=== PATIENT | male | born 1965 | race Caucasian/White ===

== ENCOUNTER → 2018-03-01 | Outpatient (CLI) | payer OTHER ==
[~2018-03-01] MED LIST: NF-ESOM40C PO; OMEP20CA12 PO; PANT20TA2 PO; SCR1T1 PO; SIMV40TA2 PO
--- NOTE | 2018-03-01 16:51 | Diagnostic Imaging Report ---
INDICATION: Cough and congestion. COMPARISON: None. FINDINGS: Two views of the chest were obtained. The heart size is normal. The pulmonary vessels appear unremarkable. There is no pneumothorax, mediastinal widening, or pleural fluid. The lungs are clear. The osseous structures appear unremarkable. IMPRESSION: No acute abnormality is demonstrated. Dictated by: Dictated on workstation # [id number]
== END ==
LOC: RAD 16:04
PROVIDERS: ATTEND Family Medicine
DX: R05 Cough (principal); R09.89 Other specified symptoms and signs involving the circulatory and respiratory systems; R06.02 Shortness of breath
CPT/HCPCS: 71046

== ENCOUNTER 2019-03-27 20:11 | Emergency (ER) | payer OTHER ==
[~2019-03-27] VITALS: Ht 182.9 cm; Wt 138.3 kg
[2019-03-27 20:13] VITALS: BP 153/87
[2019-03-27 20:37] LABS: BASOPHILS # (AUTO) 0.1 10^3/uL (0.0-0.1); BASOPHILS % (AUTO) 1 % (0-10); EOSINOPHILS # (AUTO) 0.5 10^3/uL (0.0-0.3); EOSINOPHILS % (AUTO) 5 % (0-10); HEMATOCRIT 39 % (40-54); HEMOGLOBIN 13.4 G/DL (13.3-17.7); LYMPHOCYTES % (AUTO) 22 % (12-44); MEAN CORPUSCULAR HEMOGLOBIN 30 PG (25-34); MEAN CORPUSCULAR HGB CONC 35 G/DL (32-36); MEAN CORPUSCULAR VOLUME 87 FL (80-99); MONOCYTES # (AUTO) 0.9 X 10^3 (0.0-1.0); MONOCYTES % (AUTO) 10 % (0-12); NEUTROPHILS # (AUTO) 5.6 X 10^3 (1.8-7.8); NEUTROPHILS % (AUTO) 62 % (42-75); PLATELET COUNT 218 10^3/uL (130-400); RED CELL DISTRIBUTION WIDTH 13.4 % (10.0-14.5)
[2019-03-27 20:45] LABS: INR 0.9 (0.8-1.4); PROTHROMBIN TIME PATIENT 12.9 SEC (12.2-14.7)
[2019-03-27 20:56] LABS: ALANINE AMINOTRANSFERASE 30 U/L (0-55); ALBUMIN 4.2 GM/DL (3.2-4.5); ALKALINE PHOSPHATASE 102 U/L (40-136); BILIRUBIN,TOTAL 0.5 MG/DL (0.1-1.0); BUN/CREATININE RATIO 10; CALCIUM 9.6 MG/DL (8.5-10.1); CARBON DIOXIDE 18 MMOL/L (21-32); CHLORIDE 109 MMOL/L (98-107); CREATININE SERUM 1.38 MG/DL (0.60-1.30); GFR ESTIMATED 54; GLUCOSE 149 MG/DL (70-105); MAGNESIUM 2.3 MG/DL (1.8-2.4); POTASSIUM 4.4 MMOL/L (3.6-5.0); SODIUM 140 MMOL/L (135-145); TOTAL PROTEIN 7.3 GM/DL (6.4-8.2)
--- NOTE | 2019-03-27 21:01 | ED Chest Pain ---
General Chief Complaint: Chest Pain Stated Complaint: CHEST PAIN Source: patient Exam Limitations: no limitations History of Present Illness Date Seen by Provider: Mar 27, 2019 Time Seen by Provider: 20:13 Initial Comments 53-year-old male who presents to the emergency room with complaints of sharp right-sided chest pain and shortness of breath that started 20-30 minutes prior to arrival. Reports that he had been mowing grass this evening on the right lower but was not doing anything in the chest pain started he was at best. He is pain-free on arrival to the emergency room. He denies shortness of breath, nausea, vomiting, lightheadedness. Reports history of hypertension, and hyperlipidemia. He is a patient of Dr. Codys. Timing/Duration: 1/2 hour, resolved prior to arrival Associated Symptoms: shortness of breath Allergies and Home Medications Allergies Coded Allergies: No Known Drug Allergies (Unverified , 05/23/12) Home Medications Pantoprazole Sodium 20 Mg Tablet.dr, 40 MG PO DAILY Prescribed by: CAROLINA VARGHESE on 01/09/15 133 Simvastatin 40 Mg Tablet, 40 MG PO HS, (Reported) Sucralfate 1 Gm Tab, 1 GM PO QID Prescribed by: CAROLINA VARGHESE on 01/09/15 1337 Patient Home Medication List Home Medication List Reviewed: Yes Past Knipabo-Gdmqpz-Ituveg Hx Patient Social History Recent Foreign Travel: No Contact w/Someone Who Travel: No Physical Exam Vital Signs Capillary Refill : Height, Weight, BMI Height: 6'1.00" Weight: 285lbs. oz. 129.270393bs; BMI Method:Estimated Progress/Results/Core Measures Results/Orders Lab Results Laboratory Tests Test 03/27/19 20:27 Range/Units White Blood Count 9.0 4.3-11.0 10^3/uL Red Blood Count 4.43 4.35-5.85 10^6/uL Hemoglobin 13.4 13.3-17.7 G/DL Hematocrit 39 L 40-54 % Mean Corpuscular Volume 87 80-99 FL Mean Corpuscular Hemoglobin 30 25-34 PG Mean Corpuscular Hemoglobin Concent 35 32-36 G/DL Red Cell Distribution Width 13.4 10.0-14.5 % Platelet Count 218 130-400 10^3/uL Mean Platelet Volume 12.0 H 7.4-10.4 FL Neutrophils (%) (Auto) 62 42-75 % Lymphocytes (%) (Auto) 22 12-44 % Monocytes (%) (Auto) 10 0-12 % Eosinophils (%) (Auto) 5 0-10 % Basophils (%) (Auto) 1 0-10 % Neutrophils # (Auto) 5.6 1.8-7.8 X 10^3 Lymphocytes # (Auto) 2.0 1.0-4.0 X 10^3 Monocytes # (Auto) 0.9 0.0-1.0 X 10^3 Eosinophils # (Auto) 0.5 H 0.0-0.3 10^3/uL Basophils # (Auto) 0.1 0.0-0.1 10^3/uL Prothrombin Time 12.9 12.2-14.7 SEC INR Comment 0.9 0.8-1.4 Activated Partial Thromboplast Time 28 24-35 SEC Sodium Level 140 135-145 MMOL/L Potassium Level 4.4 3.6-5.0 MMOL/L Chloride Level 109 H 98-107 MMOL/L Carbon Dioxide Level 18 L 21-32 MMOL/L Anion Gap 13 5-14 MMOL/L Blood Urea Nitrogen 14 7-18 MG/DL Creatinine 1.38 H 0.60-1.30 MG/DL Estimat Glomerular Filtration Rate 54 BUN/Creatinine Ratio 10 Glucose Level 149 H 70-105 MG/DL Calcium Level 9.6 8.5-10.1 MG/DL Corrected Calcium 9.4 8.5-10.1 MG/DL Magnesium Level 2.3 1.8-2.4 MG/DL Total Bilirubin 0.5 0.1-1.0 MG/DL Aspartate Amino Transf (AST/SGOT) 19 5-34 U/L Alanine Aminotransferase (ALT/SGPT) 30 0-55 U/L Alkaline Phosphatase 102 40-136 U/L Myoglobin 110.9 H 10.0-92.0 NG/ML Troponin I < 0.028 <0.028 NG/ML Total Protein 7.3 6.4-8.2 GM/DL Albumin 4.2 3.2-4.5 GM/DL My Orders Orders - ARVIN LINARES Cbc With Automated Diff (03/27/19 20:12) Magnesium (03/27/19 20:12) Chest 1 View, Ap/Pa Only (03/27/19 20:12) Ekg Tracing (03/27/19 20:12) Cardiac Profile 1 (03/27/19 20:12) Comprehensive Metabolic Panel (03/27/19 20:12) Myoglobin Serum (03/27/19 20:12) Protime With Inr (03/27/19 20:12) Partial Thromboplastin Time (03/27/19 20:12) O2 (03/27/19 20:12) Monitor-Rhythm Ecg Trace Only (03/27/19 20:12) Lipid Panel (03/28/19 06:00) Ed Iv/Invasive Line Start (03/27/19 20:12) Diagnostic Imaging Diagonstic Imaging: Xray Plain Films/CT/US/NM/MRI: chest Comments [facility] [place], [place] NAME: PATRICE RIVAS [facility] REC#: [id number] PT STATUS: REG ER : 1965 PHYSICIAN: ARVIN LINARES ADMIT DATE: 03/27/19/ER Draft Date of Exam:03/27/19 CHEST 1 VIEW, AP/PA ONLY INDICATION: Chest pain COMPARISON: 03/01/2018 FINDINGS: Single frontal view of the chest demonstrates normal heart size and pulmonary vascularity. The lungs show low inspiratory volumes, but are otherwise clear. No large pleural effusion or pneumothorax is seen. The visualized osseous structures show no acute abnormalities. IMPRESSION: 1. No acute cardiopulmonary process. Dictated on workstation # [id number] Dict: 03/27/[id number] Trans: 03/27/192119 [facility] [id number] Interpreted by: VALERIE HERNANDEZ MD Electronically signed by: Reviewed: Reviewed by Me Departure Impression Primary Impression: Chest pain Additional Impression: Left against medical advice Disposition: 07 AGAINST MEDICAL ADVICE Condition: Stable/Unchanged Departure-Patient Inst. Decision time for Depature: 21:30 Referrals: CAL EDWARDS DO (PCP/Family) Primary Care Physician Patient Instructions: Chest Pain (DC) Add. Discharge Instructions: Return back to the emergency room should you have worsening chest pain, or any other concerns as needed. Call Dr. Edwards's office to schedule an appointment tomorrow for follow-up to be seen within 1 week. All discharge instructions reviewed with patient and/or family. Voiced understanding. ARVIN LINARES Mar 27, 2019 21:01
--- NOTE | 2019-03-27 21:20 | Diagnostic Imaging Report ---
INDICATION: Chest pain COMPARISON: 03/01/2018 FINDINGS: Single frontal view of the chest demonstrates normal heart size and pulmonary vascularity. The lungs show low inspiratory volumes, but are otherwise clear. No large pleural effusion or pneumothorax is seen. The visualized osseous structures show no acute abnormalities. IMPRESSION: 1. No acute cardiopulmonary process. Dictated by: Dictated on workstation # [id number]
== END 2019-03-27 21:35 | disposition left against medical advice (07) ==
LOC: EDUNIT# 20:11 → ER 20:13
DX: R07.9 Chest pain, unspecified (principal)
CPT/HCPCS: 36415; 71045; 80053; 83735; 83874; 84484; 85025; 85610; 85730; 93041

== ENCOUNTER → 2019-06-28 | Outpatient (CLI) | payer OTHER ==
[~2019-06-28] VITALS: Ht 185 cm; Wt 143.0 kg
[~2019-06-28] MED LIST changes: +CATHETER FLUSH 10 ML SYR IV PRN; +REGADENOSON 0.4 MG/5 ML SYR (LEXISCAN) IV ONE
--- NOTE | 2019-06-28 16:06 | STRESS TEST ---
DATE OF SERVICE: 06/28/2019 LEXISCAN MYOVIEW STRESS TEST REPORT REFERRING PHYSICIAN: Aubrey Loving DO Baseline heart rate is 60. Baseline blood pressure 139/92. Baseline EKG is sinus rhythm. In summary, the patient received 10.98 mCi of technetium-99 Myoview and the resting images were obtained. Then, the patient received 0.4 mg of Lexiscan followed by 29.1 mCi of technetium-99 Myoview. Throughout the test, there were no EKG changes. The resting and stress images were reviewed and compared in the short axis, horizontal long axis, and vertical long axis views. Review of the images showed diaphragmatic attenuation affecting the quality of the images. There is mild decreased uptake at the base of the inferior wall with no significant reversibility. SSS is 1, SDS 1, TID value 1.05. On the gated images, the left ventricle appeared to be in normal size with normal contractility. Calculated ejection fraction 48%. CONCLUSION: 1. The patient tolerated Lexiscan well. 2. Diaphragmatic attenuation with typical male pattern with no significant ischemia or infarction on SPECT images. 3. Normal left ventricular size with normal contractility. Calculated ejection fraction 48%. Job ID: [id number] DocumentID: [id number] Dictated Date: 06/28/2019 15:47:22 Printed Circuit Board Layout Designer Date: 06/28/2019 16:06:27 Dictated By: ASHLEIGH LIM MD
== END ==
LOC: CARD 11:14
PROVIDERS: ATTEND Family Medicine
DX: R07.9 Chest pain, unspecified (principal)
CPT/HCPCS: 78452; 93017

== ENCOUNTER 2019-07-31 12:40 | Outpatient (CLI) | payer OTHER ==
[~2019-07-31 12:40] MED LIST changes: -CATHETER FLUSH 10 ML SYR IV PRN; -REGADENOSON 0.4 MG/5 ML SYR (LEXISCAN) IV ONE
== END 2019-07-31 13:15 | disposition home or self-care (01) ==
LOC: SLEEP 12:40
PROVIDERS: ATTEND Nurse Practitioner
DX: G47.33 Obstructive sleep apnea (adult) (pediatric) (principal); G47.10 Hypersomnia, unspecified

== ENCOUNTER 2019-08-03 10:15 | Outpatient (CLI) | payer OTHER ==
[~2019-08-03] VITALS: Ht 182 cm; Wt 147.4 kg
[2019-08-03 10:28] VITALS: BP 141/85
[2019-08-03] MEDS ORDERED: AMLO5TAB9 PO (10:58)
[2019-08-03] MEDS ORDERED: LISI-552 PO (10:58)
[2019-08-03] MEDS ORDERED: SIMV80TA21 PO (10:58)
[2019-08-03] MEDS ORDERED: NAPR-915 PO (10:58)
[2019-08-03] MEDS ORDERED: PANT40TA3 PO (10:58)
[2019-08-03 11:03] LABS: BASOPHILS # (AUTO) 0.1 10^3/uL (0.0-0.1); BASOPHILS % (AUTO) 1 % (0-10); EOSINOPHILS # (AUTO) 0.5 10^3/uL (0.0-0.3); EOSINOPHILS % (AUTO) 7 % (0-10); HEMATOCRIT 40 % (40-54); LYMPHOCYTES # (AUTO) 1.8 X 10^3 (1.0-4.0); LYMPHOCYTES % (AUTO) 24 % (12-44); MEAN CORPUSCULAR HEMOGLOBIN 30 PG (25-34); MEAN CORPUSCULAR HGB CONC 35 G/DL (32-36); MEAN CORPUSCULAR VOLUME 86 FL (80-99); MEAN PLATELET VOLUME 12.4 FL (7.4-10.4); MONOCYTES # (AUTO) 0.6 X 10^3 (0.0-1.0); MONOCYTES % (AUTO) 8 % (0-12); NEUTROPHILS # (AUTO) 4.5 X 10^3 (1.8-7.8); NEUTROPHILS % (AUTO) 61 % (42-75); PLATELET COUNT 208 10^3/uL (130-400); RED CELL DISTRIBUTION WIDTH 13.1 % (10.0-14.5); WHITE BLOOD COUNT 7.4 10^3/uL (4.3-11.0)
[2019-08-03 11:15] LABS: CALCIUM 9.1 MG/DL (8.5-10.1); CREATININE SERUM 1.37 MG/DL (0.60-1.30); POTASSIUM 4.5 MMOL/L (3.6-5.0)
--- NOTE | 2019-08-03 12:26 | Diagnostic Imaging Report ---
INDICATION: Preop septoplasty PA and lateral chest. FINDINGS: Heart size and pulmonary vascularity are normal. Lungs are clear. There are no effusions or pneumothoraces. IMPRESSION: Negative chest. Dictated by: Dictated on workstation # [id number]
== END 2019-08-03 13:58 | disposition home or self-care (01) ==
LOC: PREOP 10:15
PROVIDERS: ATTEND Otolaryngology Otolaryngology/Facial Plastic Surgery
DX: Z01.818 Encounter for other preprocedural examination (principal); Z11.2 Encounter for screening for other bacterial diseases; J34.2 Deviated nasal septum
CPT/HCPCS: 36415; 71046; 80048; 85025; 87081

== ENCOUNTER 2021-10-30 18:39 | Emergency (ER) | payer BC, OTHER ==
[~2021-10-30] VITALS: Ht 182.8 cm; Wt 131.5 kg
[~2021-10-30 18:39] MED LIST changes: +ACHD5005 PO; +AMLO-250 PO; +AMOX-355 PO; +LISI20TA26 PO; +NAPR-915 PO; +PANT40TA52 PO; +SIMV80TA21 PO
--- NOTE | 2021-10-30 19:47 | ED Abdominal Pain ---
General Chief Complaint: Abdominal/GI Problems Stated Complaint: ABD PAIN Source of Information: Patient Exam Limitations: No Limitations History of Present Illness Date Seen by Provider: Oct 30, 2021 Time Seen by Provider: 19:43 Initial Comments To ER with severe midline upper abdominal pain that radiated straight through to his back. This lasted about 1 hour before going away on its own. It started very abruptly. He had nausea but no vomiting. He is currently pain-free, the pain resolved on the way here. He is never had anything like this before. His last food intake prior to this was at about noon. Primary care is Dr. Edwards. History of obesity and hypertension hyperlipidemia. Timing/Duration: 1-3 Hours Severity/Quality: Severe Location: Epigastric Radiation: No Radiation Activities at Onset: None Associated Symptoms: Nausea/Vomiting Allergies and Home Medications Allergies Coded Allergies: No Known Drug Allergies (Unverified , 08/03/19) Patient Home Medication List Home Medication List Reviewed: Yes Amlodipine Besylate (Amlodipine Besylate) 5 Mg Tablet, 5 MG PO HS, (Reported) Entered as Reported by: DILIA TINOCO on 08/03/19 1058 Amoxicillin/Potassium Clav (Augmentin 500-125 Tablet) 1 Each Tablet, 1 EACH PO BID Prescribed by: JEISON LIVE on 08/10/19 1352 Hydrocodone Bit/Acetaminophen (Lortab 5 Mg Tablet) 1 Each Tablet, 1-2 TAB PO Q4H Prescribed by: JEISON LIVE on 08/10/19 1352 Lisinopril (Lisinopril) 20 Mg Tablet, 20 MG PO HS, (Reported) Entered as Reported by: DILIA TINOCO on 08/03/19 1058 Pantoprazole Sodium (Protonix) 20 Mg Tablet., 40 MG PO DAILY Prescribed by: CAROLINA VARGHESE on 01/09/15 1337 Pantoprazole Sodium (Pantoprazole Sodium) 40 Mg Tablet., 40 MG PO HS, (Reported) Entered as Reported by: DILIA TINOCO on 08/03/19 1058 Simvastatin (Zocor) 40 Mg Tablet, 40 MG PO HS, (Reported) Entered as Reported by: YOMAIRA ELIZONDO on 05/27/12 1608 Simvastatin (Simvastatin) 80 Mg Tablet, 80 MG PO HS, (Reported) Entered as Reported by: DILIA TINOCO on 08/03/19 1058 Sucralfate (Carafate) 1 Gm Tab, 1 GM PO QID Prescribed by: CRAOLINA VARGHESE on 01/09/15 1337 Review of Systems Review of Systems Constitutional: see HPI EENTM: No Symptoms Reported Respiratory: No Symptoms Reported Cardiovascular: No Symptoms Reported Gastrointestinal: See HPI, Abdominal Pain, Nausea Genitourinary: No Symptoms Reported Musculoskeletal: no symptoms reported Skin: no symptoms reported Psychiatric/Neurological: No Symptoms Reported Endocrine: No Symptoms Reported Hematologic/Lymphatic: No Symptoms Reported Past Srctcaj-Bnaduc-Rdzyvr Hx Patient Social History Tobacco Use?: No Substance use?: No Alcohol Use?: Yes Alcohol type: Beer Alcohol Frequency: Couple times a week Pt feels they are or have been: No Immunizations Up To Date Tetanus Booster (TDap): Unknown PED Vaccines UTD: Yes Influenza Vaccine Up-to-Date: Yes; Up-to-Date Seasonal Allergies Seasonal Allergies: No Past Medical History Surgeries: Yes (hernia, throat stretched) Respiratory: Yes (JUST HAD SLEEP STUDY-NO RESULTS LEFT) Cardiac: Yes High Cholesterol, Hypertension Neurological: No Sexually Transmitted Disease: No HIV/AIDS: No Genitourinary: No Gastrointestinal: Yes Gastroesophageal Reflux Musculoskeletal: No Endocrine: No HEENT: Yes (GLASSES) Loss of Vision: Denies Hearing Impairment: Denies Cancer: No Psychosocial: No Integumentary: No Blood Disorders: No Adverse Reaction/Blood Tranf: No (N/A) Physical Exam Vital Signs Vital Signs - First Documented 10/30/21 19:22 Temp 36.4 Pulse 71 Resp 20 B/P (MAP) 143/94 (110) Pulse Ox 96 Capillary Refill : Height/Weight/BMI Height: 6'0" Weight: 305lbs. oz. 138.267314ep; 44.49 BMI Method:Stated General Appearance: WD/WN, no apparent distress HEENT: PERRL/EOMI, normal ENT inspection Respiratory: no respiratory distress, no accessory muscle use Cardiovascular: regular rate, rhythm, no murmur Gastrointestinal: normal bowel sounds, non tender, soft, other (His abdomen is completely nontender to palpation) Extremities: normal range of motion, non-tender Neurologic/Psychiatric: alert, normal mood/affect, oriented x 3 Skin: normal color, warm/dry Progress/Results/Core Measures Results/Orders Lab Results Laboratory Tests Test 10/30/21 19:34 Range/Units White Blood Count 8.7 4.3-11.0 10^3/uL Red Blood Count 4.14 L 4.30-5.52 10^6/uL Hemoglobin 13.0 L 13.3-17.7 g/dL Hematocrit 37 L 40-54 % Mean Corpuscular Volume 89 80-99 fL Mean Corpuscular Hemoglobin 31 25-34 pg Mean Corpuscular Hemoglobin Concent 35 32-36 g/dL Red Cell Distribution Width 12.6 10.0-14.5 % Platelet Count 203 130-400 10^3/uL Mean Platelet Volume 12.2 9.0-12.2 fL Immature Granulocyte % (Auto) 0 % Neutrophils (%) (Auto) 71 42-75 % Lymphocytes (%) (Auto) 17 12-44 % Monocytes (%) (Auto) 6 0-12 % Eosinophils (%) (Auto) 5 0-10 % Basophils (%) (Auto) 1 0-10 % Neutrophils # (Auto) 6.2 1.8-7.8 10^3/uL Lymphocytes # (Auto) 1.5 1.0-4.0 10^3/uL Monocytes # (Auto) 0.5 0.0-1.0 10^3/uL Eosinophils # (Auto) 0.4 H 0.0-0.3 10^3/uL Basophils # (Auto) 0.1 0.0-0.1 10^3/uL Immature Granulocyte # (Auto) 0.0 0.0-0.1 10^3/uL Prothrombin Time 12.2 12.2-14.7 SEC INR Comment 0.9 0.8-1.4 Sodium Level 141 135-145 MMOL/L Potassium Level 4.3 3.6-5.0 MMOL/L Chloride Level 108 H 98-107 MMOL/L Carbon Dioxide Level 21 21-32 MMOL/L Anion Gap 12 5-14 MMOL/L Blood Urea Nitrogen 20 H 7-18 MG/DL Creatinine 1.59 H 0.60-1.30 MG/DL Estimat Glomerular Filtration Rate 51 BUN/Creatinine Ratio 13 Glucose Level 111 H 70-105 MG/DL Calcium Level 9.4 8.5-10.1 MG/DL Corrected Calcium 9.3 8.5-10.1 MG/DL Total Bilirubin 1.2 H 0.1-1.0 MG/DL Aspartate Amino Transf (AST/SGOT) 108 H 5-34 U/L Alanine Aminotransferase (ALT/SGPT) 63 H 0-55 U/L Alkaline Phosphatase 104 40-136 U/L Total Protein 7.0 6.4-8.2 GM/DL Albumin 4.1 3.2-4.5 GM/DL Lipase 28 8-78 U/L My Orders Orders - JOSE J HERNANDEZ APRN Cbc With Automated Diff (10/30/21 19:48) Comprehensive Metabolic Panel (10/30/21 19:48) Protime With Inr (10/30/21 19:48) Lipase (10/30/21 19:48) Ed Iv/Invasive Line Start (10/30/21 19:48) Acute Abd Series (10/30/21 19:48) Vital Signs/I&O 10/30/21 19:22 Temp 36.4 Pulse 71 Resp 20 B/P (MAP) 143/94 (110) Pulse Ox 96 Diagnostic Imaging Diagonstic Imaging: Xray Plain Films/CT/US/NM/MRI: chest Comments NAME: PATRICE RIVAS MED REC#: [id number] PT STATUS: REG ER : 1965 PHYSICIAN: JOSE J HERNANDEZ APRN ADMIT DATE: 10/30/21/ER Draft Date of Exam:10/30/21 ACUTE ABD SERIES INDICATION: Epigastric pain--resolved. COMPARISON: 08/03/2019. FINDINGS: Supine and upright views of the abdomen show a nondistended bowel gas pattern. No abnormal air fluid levels or free intraperitoneal air is seen. No abnormal extraosseous calcifications are seen. Bony and soft tissue structures are within normal limits. No organomegaly is identified. Accompanying upright chest shows normal heart size and pulmonary vascularity. The lungs are well aerated and clear. The mediastinum is normal in appearance. IMPRESSION: 1. No bowel obstruction or free air. 2. Normal chest. No pneumonia or pulmonary edema. Dictated on workstation # [id number] Dict: 10/30/212018 Trans: 10/30/212020 E [id number] Interpreted by: VALERIE HERNANDEZ MD Electronically signed by: Departure Communication (Admissions) Symptoms certainly sound like biliary colic. We will have ultrasound available after hours for this indication. He is nontender to palpation now. I will check some labs though I would expect them to be fairly unremarkable given his benign presentation currently. Spoke with Dr. Edwards, he like to see the patient tomorrow. He would like to have the patient n.p.o. when he sees him in the morning so that he can arrange for a gallbladder ultrasound to be done tomorrow. Impression Primary Impression: Biliary colic Disposition: HOME, SELF-CARE Condition: Stable Departure-Patient Inst. Decision time for Depature: 19:45 Referrals: CAL EDWARDS DO (PCP/Family) Primary Care Physician Patient Instructions: NO INSTRUCTIONS GIVEN Add. Discharge Instructions: What you are describing sounds like a biliary colic. This is due to stones in the gallbladder. You can eat whatever you want until about 2 AM though it should be a low-fat low dairy product diet. After 2 am do not eat or drink anything. Call Dr. Edwards's office at 8 AM tomorrow morning and he will schedule the gallbladder ultrasound. You have to be without anything to eat or drink for 6 hours before the gallbladder ultrasound and he would like to get it done tomorrow so if you can have an empty stomach in the morning this will facilitate getting the gallbladder ultrasound done sooner. In the meantime, return to ER for any worsening symptoms. All discharge instructions reviewed with patient and/or family. Voiced understanding. Copy Copies To 1: CAL EDWARDS PETER J APRN Oct 30, 2021 19:47
[2021-10-30 20:04] LABS: BASOPHILS # (AUTO) 0.1 10^3/uL (0.0-0.1); BASOPHILS % (AUTO) 1 % (0-10); EOSINOPHILS # (AUTO) 0.4 10^3/uL (0.0-0.3); EOSINOPHILS % (AUTO) 5 % (0-10); HEMATOCRIT 37 % (40-54); LYMPHOCYTES # (AUTO) 1.5 10^3/uL (1.0-4.0); LYMPHOCYTES % (AUTO) 17 % (12-44); MEAN CORPUSCULAR HEMOGLOBIN 31 pg (25-34); MEAN CORPUSCULAR HGB CONC 35 g/dL (32-36); MEAN CORPUSCULAR VOLUME 89 fL (80-99); MEAN PLATELET VOLUME 12.2 fL (9.0-12.2); MONOCYTES # (AUTO) 0.5 10^3/uL (0.0-1.0); MONOCYTES % (AUTO) 6 % (0-12); NEUTROPHILS # (AUTO) 6.2 10^3/uL (1.8-7.8); NEUTROPHILS % (AUTO) 71 % (42-75); PLATELET COUNT 203 10^3/uL (130-400); WHITE BLOOD COUNT 8.7 10^3/uL (4.3-11.0)
[2021-10-30 20:10] LABS: INR 0.9 (0.8-1.4); PROTHROMBIN TIME PATIENT 12.2 SEC (12.2-14.7)
[2021-10-30 20:17] LABS: ALBUMIN 4.1 GM/DL (3.2-4.5); BILIRUBIN,TOTAL 1.2 MG/DL (0.1-1.0); CALCIUM 9.4 MG/DL (8.5-10.1); CREATININE SERUM 1.59 MG/DL (0.60-1.30); POTASSIUM 4.3 MMOL/L (3.6-5.0)
--- NOTE | 2021-10-30 20:21 | Diagnostic Imaging Report ---
INDICATION: Epigastric pain--resolved. COMPARISON: 08/03/2019. FINDINGS: Supine and upright views of the abdomen show a nondistended bowel gas pattern. No abnormal air fluid levels or free intraperitoneal air is seen. No abnormal extraosseous calcifications are seen. Bony and soft tissue structures are within normal limits. No organomegaly is identified. Accompanying upright chest shows normal heart size and pulmonary vascularity. The lungs are well aerated and clear. The mediastinum is normal in appearance. IMPRESSION: 1. No bowel obstruction or free air. 2. Normal chest. No pneumonia or pulmonary edema. Dictated by: Dictated on workstation # [id number]
[2021-10-30 20:35] VITALS: BP 150/92
== END 2021-10-30 20:39 | disposition home or self-care (01) ==
LOC: EDUNIT# 18:39 → ER 18:41
DX: K80.50 Calculus of bile duct without cholangitis or cholecystitis without obstruction (principal); E66.9 Obesity, unspecified; Z68.41 Body mass index [BMI] 40.0-44.9, adult
CPT/HCPCS: 36415; 74022; 80053; 83690; 85025; 85610

== ENCOUNTER → 2021-10-31 | Outpatient (CLI) | payer BC ==
--- NOTE | 2021-10-31 11:50 | Diagnostic Imaging Report ---
PROCEDURE: US Gallbladder. TECHNIQUE: Multiple real-time grayscale images were obtained over the right upper quadrant in various projections. INDICATION: Upper abdominal pain. Elevated liver enzymes. FINDINGS: Liver is homogeneous in appearance and appears normal. Long axis 17 cm. Bile ducts are not dilated. Common duct is 5 mm. There is a mobile sludge within the gallbladder with small stones as well. There is thickening of the gallbladder wall measuring 5 mm. No definite pericholecystic fluid. The aorta, vena cava and portal vein appear normal with Doppler sampling. Right kidney measures 10.4 x 6.3 x 6 cm. There is mild hydronephrosis of the right kidney. No calculi are seen. IMPRESSION: 1. Cholelithiasis with abnormal thickening of the gallbladder wall. These findings could be secondary to acute cholecystitis. 2. There is mild to moderate hydronephrosis of the right kidney. Dictated by: Dictated on workstation # [id number]
== END ==
LOC: RAD 10:30
PROVIDERS: ATTEND Family Medicine
DX: K80.20 Calculus of gallbladder without cholecystitis without obstruction (principal); K82.8 Other specified diseases of gallbladder; N13.30 Unspecified hydronephrosis
CPT/HCPCS: 76705

== ENCOUNTER 2021-11-07 05:32 | Outpatient (CLI) | payer BC ==
[~2021-11-07] VITALS: Ht 182.8 cm; Wt 131.8 kg
== END 2021-11-07 10:05 | disposition home or self-care (01) ==
LOC: PREOP 05:32
PROVIDERS: ATTEND Surgery
DX: Z01.818 Encounter for other preprocedural examination (principal)

== ENCOUNTER 2021-11-12 07:17 | Day surgery (SDC) | payer BC ==
[2021-11-12] VITALS (12 sets, daily range): BP systolic 109–139; BP diastolic 66–99
[~2021-11-12] VITALS: Ht 182 cm; Wt 131.8 kg
[2021-11-12] MEDS ORDERED: ceFAZolin 2 GM IV Premixed 50 ML IV ONE (07:30)
[2021-11-12] MEDS: LACTATED RINGERS 1,000 ML IV PRN ×2 (08:22→10:55)
--- NOTE | 2021-11-12 08:27 | Progress Note-Pre Operative ---
Pre-Operative Progress Note H&P Reviewed The H&P was reviewed, patient examined and no changes noted. Date Seen by Provider: Nov 12, 2021 Time Seen by Provider: 08:26 Date H&P Reviewed: Nov 12, 2021 Time H&P Reviewed: 08:26 Pre-Operative Diagnosis: cholelithiais DAVE DOVER DO Nov 12, 2021 08:27
[2021-11-12] MEDS ORDERED: LIDOCAINE/EPI 2% 1:200,00 (XYLOCAINE) 20 ML VIAL ONE (09:05)
[2021-11-12] MEDS ORDERED: MIDAZOLAM 2 MG/2 ML (VERSED) VIAL ONE ×2 (09:49→09:54)
[2021-11-12] MEDS ORDERED: fentaNYL INJ 100 MCG/2 ML AMP ONE ×2 (09:49→10:45)
[2021-11-12] MEDS ORDERED: ROCURONIUM 10 MG/ML 5 ML SYRINGE IV ONE (10:19)
[2021-11-12] MEDS ORDERED: LIDOCAINE 2% 20 ML (XYLOCAINE) VIAL ONE (10:19)
[2021-11-12] MEDS ORDERED: proPOfol 200 MG/20 ML (DIPRIVAN) VIAL IV ONE (10:19)
[2021-11-12] MEDS ORDERED: LIDOCAINE PF 2% 5 ML (XYLOCAINE) VIAL ONE (10:20)
[2021-11-12] MEDS ORDERED: ONDANSETRON 4 MG/2 ML (SDV) Z0FRAN ONE (10:54)
[2021-11-12] MEDS ORDERED: GLYCOPYRROLATE 0.2 MG/ML (ROBINUL) 2 ML VIAL ONE (10:54)
[2021-11-12] MEDS ORDERED: NEOSTIGMINE 3 MG/3 ML VIAL ONE (10:54)
[2021-11-12] MEDS ORDERED: PHENYLEPHRINE 100 MCG/ML 10 ML (ANESTHESIA) SYR ONE (10:55)
[2021-11-12] MEDS ORDERED: SEVOFLURANE (ULTANE) 15 ML INHAL SOLN ONE (11:06)
--- NOTE | 2021-11-12 11:15 | Diagnostic Imaging Report ---
INDICATION: Fluoroscopy during intraoperative cholangiogram. FINDINGS: Fluoroscopy was provided in the OR during intraoperative cholangiogram. 10 seconds of fluoroscopic time was utilized. 47 images were obtained. Contrast is noted being injected via the cystic duct remnant. Extrahepatic bile duct is normal caliber. No filling defects are seen. The duodenum was not opacified on this study. IMPRESSION: Fluoroscopy during intraoperative cholangiogram. Dictated by: Dictated on workstation # [id number]
[2021-11-12] MEDS ORDERED: morphine INJ 10 MG/ML 1ML (SYR OR VIAL) ONE (11:37)
[2021-11-12] MEDS ORDERED: ACHD5005 PO (11:56)
[2021-11-12] MEDS ORDERED: DOCU-143 PO (11:56)
--- NOTE | 2021-11-12 11:57 | Discharge Inst-Simple/Standard ---
Discharge Inst-Standard Discharge Medications New, Converted or Re-Newed RX: Transmitted to Pharmacy Patient Instructions/Follow Up Plan of Care/Instructions/FU: 2-3 weeks Lotus Activity as Tolerated: No Discharge Diet: Regular Diet Other Inst to Patient Follow up Appt: Make appointment for 2-3 weeks. Instructions: No lifting greater than 10 pounds. No strenuous activity. May shower in 24 hours, no tub bath or soaking. Use incentive spirometer at home as directed. No Smoking Skin/Wound Care: You have special glue over incision, it will fall off on it's own. Symptoms to Report: Appetite Changes, Extremity Discoloration, Numbness/Tingling, Swelling Increased, Bleeding Excessive, Eyesight Changes, Pain Increased, Urine Color Change, Constipation(Persistent), Fever over 101 degree F, Pain/Pressure in chest, Urinating Difficulty, Cough Up/Vomit Blood, Heart Beat Irreg/Pounding, Pain/Pressure in jaw, Vaginal Bleeding Increase, Cramps in feet or legs, Lightheadedness, Pain/Pressure in shoulder, Diarrhea(Persistent), Memory Changes Suddenly, Questions/Concerns, Weight gain consecutive days, Dizziness/Fainting, Nausea/Vomiting, Shortness of Breath, Weight gain over 2 pounds. If eyes or skin turn yellow notify physician. If questions or concerns contact your physician Or seek help at emergency department. DAVE DOVER DO Nov 12, 2021 11:57
--- NOTE | 2021-11-12 12:00 | Progress Note-Post Operative ---
Post-Operative Progess Note Surgeon (s)/Mirror Inspector (s) Surgeon DAVE DOVER DO Mirror Inspector: Dr. Cobb to assist in retraction dissection and closure. Pre-Operative Diagnosis cholelithiais Post-Operative Diagnosis same Procedure & Operative Findings Date of Procedure 11/12/21 Procedure Performed/Findings PROCEDURE: Laparoscopic cholecystectomy with intraoperative cholangiogram. COMPLICATIONS: None. PROCEDURE: The patient was taken to the operating suite and was prepped and draped in sterile fashion. A surgical pause was performed. Just superior to the umbilicus, a 12 mm incision was made. Dissection was taken down to the fascia, which was then scored and grasped with a Gaston and the abdomen was then entered. A 0 Vicryl suture was placed in a [id number] fashion and a Haines trocar was placed and secured. Pneumoperitoneum was achieved. A 5mm trochar place in the subxyphoid and 2 in the right upper quadrant. The gallbladder was then grasped and elevated. Multiple adhesions to the gallbladder which were taken down with blunt and cautery dissection. The cystic duct, and cystic artery were then dissected out. Clip was placed on the distal portion of the cystic duct which was then partially transected. An arrow catheter was inserted into the duct. The cholangiogram was then performed. No filing defects and contrast made its way into the duodenum. Catheter removed. Clips were placed on proximal portion of the cystic duct and then the duct was then transected. Clips were placed along the proximal and distal portion of the cystic artery which was then transected. Hook cautery was used to dissect the gallbladder from the gallbladder fossa achieving hemostasis. The gallbladder was placed in an Endobag and removed through the 12 mm trocar site. The abdomen was then reinspected. Copious amounts of irrigation were used to irrigate the abdomen and there were no signs of active bleeding. Hemostasis had been achieved. The 12 mm fascial defect was then closed with 0 Vicryl suture that had been placed in a [id number] fashion. The abdomen was then desufflated, the trocars were removed. The abdomen was then washed and dried. The skin was then closed using 4-0 Monocryl in a subcuticular fashion. The abdomen was washed and dried and Skin Affix was place over incisions. Patient tolerated the procedure well without any complications and was taken to the recovery room in stable condition. Anesthesia Type general Estimated Blood Loss Estimated blood loss (mL): minimal Specimens/Packing Specimens Removed gallbladder DAVE DOVER DO Nov 12, 2021 12:00
--- NOTE | 2021-11-17 08:56 | Anesthesia-General Post-Op ---
General Significant Intra-Op Events Notes late entry 11/12/21 @ 1200 Patient Condition Mental Status/LOC: Same as Preop Cardiovascular: Satisfactory Nausea/Vomiting: Absent Respiratory: Satisfactory Pain: Controlled Complications: Absent Post Op Complications Complications None Follow Up Care/Instructions Patient Instructions None needed. Anesthesia/Patient Condition Patient Condition Patient is doing well, no complaints, stable vital signs, no apparent adverse anesthesia problems. No complications reported per nursing. ARTEMIO SCHAEFER CRNA Nov 17, 2021 08:56
== END 2021-11-12 14:14 | disposition home or self-care (01) ==
LOC: SDC 07:17
PROVIDERS: ATTEND Surgery
DX: K80.10 Calculus of gallbladder with chronic cholecystitis without obstruction (principal); E66.9 Obesity, unspecified; Z68.39 Body mass index [BMI] 39.0-39.9, adult; Z87.891 Personal history of nicotine dependence
CPT/HCPCS: 76000; 87081; 94664